=== PATIENT | male | born 1995 | race Hispanic/Latino ===

== ENCOUNTER 2024-11-12 09:10 | Emergency (ER) | payer SELFPAY ==
[~2024-11-12] VITALS: Ht 152.4 cm; Wt 65.0 kg
[2024-11-12] MEDS ORDERED: TRAVOPROST0.0041 OU (10:26)
[2024-11-12] MEDS ORDERED: ERYTHROMYCIN O3.5 GM OU (13:22)
[2024-11-12 13:24] VITALS: BP 135/77
== END 2024-11-12 13:30 | disposition home or self-care (01) | DRG 125 ==
LOC: ED 09:10
DX: H10.9 Unspecified conjunctivitis (principal); H40.9 Unspecified glaucoma